=== PATIENT | male | born 1945 | race Caucasian/White ===

== ENCOUNTER 2017-11-18 13:38 | Inpatient (IN) | payer OTHER ==
[2017-11-18] VITALS (8 sets, daily range): BP systolic 108–143; BP diastolic 32–61
[~2017-11-18] VITALS: Ht 172.7 cm; Wt 70.8 kg
--- NOTE | ~2017-11-18 | CON ---
[place], [place] REPORT OF CONSULTATION NAME: FANNY DONG [facility] #: [id number] UNIT #: [id number] ROOM: 426 DOCTOR: ALEXANDRE MAYO MD BIRTHDATE: [birth year] DOS: 11/20/2017 CONSULTATION REQUESTED BY: Hospitalist service. REASON FOR CONSULTATION: Assessment of chest pain. HISTORY OF PRESENT ILLNESS: This is a 72-year-old white male, who is a patient unknown to me from the past. The patient has been admitted to the hospital under the hospitalist services on the date of 11/18/2017. The patient came into the Emergency Room, as he developed symptoms of acute left-sided chest pain, described to be stab by the patient, moderate to severe in intensity, radiating some to the arm and the shoulder. The pain has been also noted in the mid back as well. The pain was not resolving at home. The patient got concerned with possibility of heart attack, for which the patient came to the hospital for further assessment. He was also complaining of significant tightness in the chest, which lasted about 2-1/2 hours. The pain was not associated with any diaphoresis, cough, shortness of breath or hemoptysis. The patient denied symptoms of chest trauma. REVIEW OF SYSTEMS: CONSTITUTIONAL SYMPTOMS: Fatigue and tiredness was noted without any symptoms of fever or chills. EYES: Denies any burning, redness or tenderness. EARS, NOSE, THROAT: Denies sore throat, hoarseness, otalgia, postnasal drainage or epistaxis. CARDIOVASCULAR: Denies anginal pain at the present time. Denies any edema of the lower extremities, palpitations or pain of the lower extremities. GASTROINTESTINAL: Denies dysphagia, nausea, vomiting, diarrhea, abdominal pain, hematemesis, melena or hematochezia. GENITOURINARY: Denies dysuria, suprapubic pain or hematuria. SKIN: Denies abnormal lesions or rashes. CENTRAL NERVOUS SYSTEM: Denies dizziness, headache, diplopia or syncopal episodes at the present time. He was complaining of some dizziness on admission, which has been resolved. Remaining systems were reviewed, they were noted all negative. PAST MEDICAL HISTORY: 1. He has history reported for COPD, but the patient is a nonsmoker. 2. Agent [place] exposure. 3. History of depression. 4. History of congestive heart failure, systolic or diastolic dysfunction is unknown. 5. Peptic ulcer disease. 6. Gastroesophageal reflux disease. 7. Hyperlipidemia. 8. Obstructive sleep apnea disorder. 9. Coronary artery disease. PAST SURGICAL HISTORY: [place], [place] REPORT OF CONSULTATION NAME: FANNY DONG UNIT #: [id number] ROOM: 426 DOCTOR: ALEXANDRE MAYO MD BIRTHDATE: [birth year] 1. Cardiac catheterization and coronary stents insertion in the past. 2. Bilateral inguinal hernia repair. 3. Surgery of the right upper extremity. SOCIAL HISTORY: The patient denies any history of alcohol, tobacco or illicit drug use. He is and lives at home. The patient has 2 children. FAMILY HISTORY: The patient's father at age 90 of old age. Mother from complication of at a younger age. HOME MEDICATIONS: Noted use of aspirin, Lipitor, Plavix, guaifenesin 1 mg b.i.d., Asmanex, Protonix and Paxil. DRUG ALLERGIES: THE PATIENT REPORTED ALLERGY TO: 1. PROZAC. 2. RABEPRAZOLE. PHYSICAL EXAMINATION: GENERAL: This is a 72-year-old male, who has been currently sitting comfortably on his bed without any acute distress at the time of the assessment. Height of 5 feet 8 inches, weight of 154 pounds, BMI 23. VITAL SIGNS: Normal temperature in the last 2 days of admission, respiratory rate ranged between 60 to 80, heart rate bradycardia for the patient at the lowest of 42 and the highest of 66, blood pressure of 116/68 to 143/32, pulse oxygen saturation on room air 95% saturation. HEENT: Head was atraumatic. Eyes nonicterus. Moderate decreased posterior pharyngeal space. Head was atraumatic. CARDIOVASCULAR SYSTEM: S1, S2 is audible. LUNGS: The patient was noted without any wheeze or crackles. Breaths are noted normal on auscultation bilaterally. ABDOMEN: Soft with mild to moderate obesity. Bowel sounds present. CENTRAL NERVOUS SYSTEM: Cranial nerves 2-12 intact. MUSCULOSKELETAL: Without any acute deformities. SKIN: No abnormal lesions or rashes. LABORATORY DATA: CBC of the patient on 11/18/2017 noted as essentially grossly normal. PT/PTT on 11/18/2017 was normal. CMP of the patient 11/18/2017 was noted with BUN of 20, creatinine 1.51 on admission. LFT is normal. Troponin of the patient 3 sets on 11/18/2017 normal. CBC on 11/19/2017 normal. CMP: BUN 19, creatinine 1.3 on 11/19/2017. The arterial blood gas for the patient: pH of 7.42, pCO2 33.8, pO2 82 on room air yesterday as well. The CBC of the patient yesterday essentially remains the same since admission. CMP of the patient: BUN 17, creatinine 1.47 noted. Chest x-ray of the patient that was done on 11/19/2017 essentially noted without any acute abnormality. CT of the chest was also completed for the patient that was reviewed, does not show any acute pulmonary embolus in the major pulmonary arteries. Subcarinal lymph node of the patient noted, the shortest dimension 1.2, the largest dimension 1.8, and a small left hilar lymph node also noted 1 cm in the shortest dimension. The left lower lobe for the patient was noted with possible pulmonary nodule, reflection of the pleural fluid in the left lower lobe cannot be completely excluded with [place], [place] REPORT OF CONSULTATION NAME: FANNY DONG UNIT #: [id number] ROOM: 426 DOCTOR: ALEXANDRE MAYO MD BIRTHDATE: [birth year] the possibility of some scarring as well. There was no past study available for the patient to compare the current findings about their acute or chronicity. IMPRESSION: 1. The patient who has been currently admitted to the hospital, noted with atypical chest pain on the left side. The exact etiology could not be determined. He has already completed the myocardial perfusion study on 11/19/2017 and assessed by the Cardiology services of the patient and noted as a normal study. 2. Finding of the current lymph node enlargement, abnormality in the left lower lobe, significance unknown. There was no past history of tobacco use. PLAN OF MANAGEMENT: The patient is [facility], as he has been managed through that, requiring the assessment of current abnormality of lymph node and to get the appropriate care and assessment. He would not require any further immediate assessment during the hospitalization. The patient is discharged home. He would be continued to be monitored by the primary care attending. The bradyarrhythmia of the patient that was also noted during admission seemed to resolve, may be medication related use by the patient. Other supportive therapy, plan of management and care plan. ALEXANDRE FERNANDEZ MD CM:CONSTR:REPORT OF CONSULTATION 1409 11/21/17 0111 interface
--- NOTE | ~2017-11-18 | ST ---
[place], [place] EXERCISE STRESS TEST [id number] UNIT #: [id number] ROOM: 426 DOCTOR: LUIS CABRERA MD BIRTHDATE: [birth year] DOS: 11/19/2017 LEXISCAN STRESS EKG REPORT REFERRING PHYSICIAN: Dr. Evans. INDICATION: Central chest pain. The patient underwent standard protocol Lexiscan stress EKG. Baseline EKG showed sinus bradycardia with heart rate of 47, blood pressure 149/74. The patient's peak heart rate was 66 with blood pressure 136/76. The patient had no chest pain, no ischemic changes, no arrhythmias noted. SUMMARY OF FINDINGS: Unremarkable Lexiscan stress EKG. Please see separate report for perfusion scan imaging results. LUIS CABRERA MD CM:STRESS:EXERCISE STRESS TEST REPORT [id number] LUIS CABRERA MD
[~2017-11-18 13:38] MED LIST: ASPIR LOW81 MG PO; METOCLOPRAMIDE H5 M1 PO; PANTOPRAZOLE SO40 MG PO; PAROXETINE30 MG PO; PAROXETINE40 MG PO; STRATTERA80 MG PO
[2017-11-18 14:16] LABS: BASO % 0.6 % (0.0-1.0); EOS # 0.2 10*3/uL (0.0-0.4); EOS % 3.3 % (1.0-4.0); HEMATOCRIT 38.9 % (42.0-52.0); HEMOGLOBIN 12.7 g/dl (14.0-18.0); LYMPH # 1.4 10*3/uL (1.3-4.4); LYMPH % 26.3 % (27.0-41.0); MEAN CELL VOLUME 90.3 fl (80.0-94.0); MEAN CORPUSCULAR HGB 29.5 pg (27.0-31.0); MEAN CORPUSCULAR HGB CONC 32.6 g/dl (33.0-37.0); MEAN PLATELET VOLUME 9.4 fl (9.6-12.3); MONO # 0.6 10*3/uL (0.1-1.0); MONO % 10.6 % (3.0-9.0); NEUT # 3.1 10*3/uL (2.3-7.9); PLATELET COUNT AUTOMATED 226 10*3/uL (130-400); RED BLOOD COUNT 4.31 10*6/uL (4.50-5.90); RED CELL DISTRI WIDTH 13.5 % (0-14.5); WHITE BLOOD COUNT 5.2 10*3/uL (4.8-10.8)
[2017-11-18 14:27] LABS: ACT PARTIAL THROMBO TIME 26.3 SECONDS (20.8-31.5); INTERNATIONAL NORM RATIO 1.1 (2.0-3.5)
[2017-11-18 14:33] LABS: ALBUMIN 3.4 gm/dl (3.1-4.5); ALKALINE PHOSPHATASE 163 U/L (45-117); BUN 20 mg/dl (7-24); CHLORIDE 102 mmol/L (98-107); CREATININE 1.51 mg/dL (0.70-1.30); SGOT/AST 29 IU/L (3-35); SGPT/ALT 43 U/L (12-78); SODIUM 138 mmol/L (136-145); TOTAL PROTEIN 6.8 gm/dL (6.4-8.2)
[2017-11-18 14:35] LABS: TROPONIN I < 0.015 ng/ml (<0.045)
[2017-11-18] MEDS ORDERED: PAXIL10 MG PO (17:41)
[2017-11-18] MEDS ORDERED: PAROXETINE HCL40 MG PO (18:25)
[2017-11-18] MEDS ORDERED: LIPITOR20 MG PO (18:26)
[2017-11-18] MEDS ORDERED: BAYER ASPIRIN C81 MG PO (18:27)
[2017-11-18] MEDS ORDERED: PLAVIX75 M1 PO (18:27)
[2017-11-18] MEDS ORDERED: GUANFACINE HCL1 MG PO (18:27)
[2017-11-18] MEDS ORDERED: ASMANEX220 MCG INH (18:29)
[2017-11-19] VITALS: BP 108/60
[2017-11-19 06:58] LABS: BASO % 0.6 % (0.0-1.0); EOS # 0.2 10*3/uL (0.0-0.4); EOS % 4.1 % (1.0-4.0); HEMATOCRIT 38.3 % (42.0-52.0); HEMOGLOBIN 12.6 g/dl (14.0-18.0); LYMPH # 1.5 10*3/uL (1.3-4.4); LYMPH % 27.5 % (27.0-41.0); MEAN CELL VOLUME 90.3 fl (80.0-94.0); MEAN CORPUSCULAR HGB 29.7 pg (27.0-31.0); MEAN CORPUSCULAR HGB CONC 32.9 g/dl (33.0-37.0); MEAN PLATELET VOLUME 9.2 fl (9.6-12.3); MONO # 0.8 10*3/uL (0.1-1.0); MONO % 14.3 % (3.0-9.0); NEUT # 2.8 10*3/uL (2.3-7.9); NEUT % 53.3 % (47.0-73.0); PLATELET COUNT AUTOMATED 201 10*3/uL (130-400); RED BLOOD COUNT 4.24 10*6/uL (4.50-5.90); RED CELL DISTRI WIDTH 13.8 % (0-14.5); WHITE BLOOD COUNT 5.3 10*3/uL (4.8-10.8)
[2017-11-19 07:07] LABS: ALBUMIN 3.1 gm/dl (3.1-4.5); ALKALINE PHOSPHATASE 148 U/L (45-117); BUN 19 mg/dl (7-24); CHLORIDE 106 mmol/L (98-107); CHOLESTEROL 137 mg/dL (<200); CREATININE 1.32 mg/dL (0.70-1.30); FREE T4 0.82 ng/dl (0.76-1.46); HDL CHOLESTEROL 42 mg/dl (40-60); LDL CHOLESTEROL 76 mg/dL (9-159); PHOSPHOROUS 3.5 mg/dL (2.5-4.9); POTASSIUM 4.3 mmol/L (3.5-5.1); SGOT/AST 30 IU/L (3-35); SGPT/ALT 41 U/L (12-78); SODIUM 141 mmol/L (136-145); TOTAL PROTEIN 6.2 gm/dL (6.4-8.2); TRIGLYCERIDES 94 mg/dl (<150); VLDL CHOLESTEROL 19 mg/dL (6-40)
[2017-11-19 07:42] LABS: ACT PARTIAL THROMBO TIME 27.7 SECONDS (20.8-31.5); INTERNATIONAL NORM RATIO 1.1 (2.0-3.5)
[2017-11-19 08:00] VITALS: BP 132/60
[2017-11-19 08:17] LABS: VITAMIN D, 25-HYDROXY 23.7 ng/mL (30-100)
[2017-11-19 13:06] VITALS: BP 142/64
[2017-11-19 16:00] VITALS: BP 131/65
[2017-11-19 17:22] LABS: ABG BASE EXCESS -1.7 mmol/L (-2.0-2.0); ABG HCO3 21.7 mmol/l (22-26); ABG O2 SATURATION 96.4 % (95-97); ARTERIAL BLOOD GAS PCO2 33.8 mmHg (35-45); ARTERIAL BLOOD GAS PH 7.422 (7.35-7.45); ARTERIAL BLOOD GAS PO2 82.1 mmHg (80-90)
[2017-11-19 20:00] VITALS: BP 115/56
[2017-11-20] VITALS: BP 116/68
[2017-11-20 06:38] LABS: BASO % 0.7 % (0.0-1.0); EOS # 0.2 10*3/uL (0.0-0.4); EOS % 3.8 % (1.0-4.0); HEMATOCRIT 39.4 % (42.0-52.0); HEMOGLOBIN 12.8 g/dl (14.0-18.0); LYMPH # 1.4 10*3/uL (1.3-4.4); MEAN CORPUSCULAR HGB 29.2 pg (27.0-31.0); MEAN CORPUSCULAR HGB CONC 32.5 g/dl (33.0-37.0); MEAN PLATELET VOLUME 9.8 fl (9.6-12.3); MONO # 0.7 10*3/uL (0.1-1.0); MONO % 12.8 % (3.0-9.0); NEUT # 3.4 10*3/uL (2.3-7.9); NEUT % 58.5 % (47.0-73.0); PLATELET COUNT AUTOMATED 217 10*3/uL (130-400); RED BLOOD COUNT 4.38 10*6/uL (4.50-5.90); RED CELL DISTRI WIDTH 13.9 % (0-14.5); WHITE BLOOD COUNT 5.7 10*3/uL (4.8-10.8)
[2017-11-20 06:57] LABS: ALBUMIN 3.2 gm/dl (3.1-4.5); CREATININE 1.47 mg/dL (0.70-1.30); PHOSPHOROUS 2.5 mg/dL (2.5-4.9); TOTAL PROTEIN 6.5 gm/dL (6.4-8.2)
[2017-11-20 08:00] VITALS: BP 118/84
[2017-11-20 12:00] VITALS: BP 133/79
== END 2017-11-20 15:54 | disposition home or self-care (01) | DRG 205 ==
LOC: ED 13:38 → 4E 17:17 → EDHOLD 17:17 → 4E 17:27
PROVIDERS: Family Medicine; Internal Medicine; Nurse Practitioner Family
PROC: 3E073KZ Introduction of Other Diagnostic Substance into Coronary Artery, Percutaneous Approach (ICD-10-PCS; principal; 2017-11-19)
PROC: 4A02XM4 Measurement of Cardiac Total Activity, External Approach (ICD-10-PCS; principal; 2017-11-19)
DX: M94.0 Chondrocostal junction syndrome [Tietze] (principal); N17.0 Acute kidney failure with tubular necrosis; I50.32 Chronic diastolic (congestive) heart failure; E44.0 Moderate protein-calorie malnutrition; J98.11 Atelectasis; I25.10 Atherosclerotic heart disease of native coronary artery without angina pectoris; J44.9 Chronic obstructive pulmonary disease, unspecified; K21.9 Gastro-esophageal reflux disease without esophagitis; K25.9 Gastric ulcer, unspecified as acute or chronic, without hemorrhage or perforation; F32.9 Major depressive disorder, single episode, unspecified; D72.810 Lymphocytopenia; D72.821 Monocytosis (symptomatic); E78.5 Hyperlipidemia, unspecified; G47.33 Obstructive sleep apnea (adult) (pediatric); F41.9 Anxiety disorder, unspecified; D64.9 Anemia, unspecified; E55.9 Vitamin D deficiency, unspecified; R73.03 Prediabetes; Z77.098 Contact with and (suspected) exposure to other hazardous, chiefly nonmedicinal, chemicals; I34.0 Nonrheumatic mitral (valve) insufficiency; Z88.8 Allergy status to other drugs, medicaments and biological substances; Z79.899 Other long term (current) drug therapy; Z95.5 Presence of coronary angioplasty implant and graft; Z87.11 Personal history of peptic ulcer disease; Z68.23 Body mass index [BMI] 23.0-23.9, adult

== ENCOUNTER 2018-03-31 13:38 | Inpatient (IN) | payer OTHER, MEDICARE ==
[~2018-03-31] VITALS: Ht 172.7 cm; Wt 69.0 kg
[~2018-03-31 13:38] MED LIST changes: +ASMANEX220 MCG INH; +BAYER ASPIRIN C81 MG PO; +GUANFACINE HCL1 MG PO; +LIPITOR20 MG PO; +PAROXETINE HCL40 MG PO; +PAXIL10 MG PO; +PLAVIX75 M1 PO
[2018-03-31 13:43] VITALS: BP 132/70
[2018-03-31 14:02] LABS: BASO % 0.2 % (0.0-1.0); EOS # 0.1 10*3/uL (0.0-0.4); EOS % 1.2 % (1.0-4.0); HEMATOCRIT 39.9 % (42.0-52.0); LYMPH # 1.3 10*3/uL (1.3-4.4); LYMPH % 15.5 % (27.0-41.0); MEAN CELL VOLUME 92.1 fl (80.0-94.0); MEAN CORPUSCULAR HGB CONC 32.6 g/dl (33.0-37.0); MEAN PLATELET VOLUME 9.2 fl (9.6-12.3); MONO # 0.9 10*3/uL (0.1-1.0); MONO % 11.5 % (3.0-9.0); NEUT # 5.7 10*3/uL (2.3-7.9); NEUT % 71.2 % (47.0-73.0); PLATELET COUNT AUTOMATED 230 10*3/uL (130-400); RED BLOOD COUNT 4.33 10*6/uL (4.50-5.90); RED CELL DISTRI WIDTH 14.3 % (0-14.5); WHITE BLOOD COUNT 8.1 10*3/uL (4.8-10.8)
[2018-03-31 14:11] LABS: INTERNATIONAL NORM RATIO 1.1 (2.0-3.5)
[2018-03-31 14:22] LABS: ALBUMIN 3.5 gm/dl (3.1-4.5); ALKALINE PHOSPHATASE 187 U/L (45-117); BUN 16 mg/dl (7-24); CHLORIDE 103 mmol/L (98-107); CREATININE 1.53 mg/dL (0.70-1.30); POTASSIUM 3.6 mmol/L (3.5-5.1); SGOT/AST 16 IU/L (3-35); SGPT/ALT 20 U/L (12-78); SODIUM 139 mmol/L (136-145)
[2018-03-31 14:24] LABS: TROPONIN I < 0.015 ng/ml (<0.045)
[2018-03-31 14:33] VITALS: BP 103/59
[2018-03-31 15:12] VITALS: BP 97/68
[2018-03-31 15:40] VITALS: BP 97/68
[2018-03-31] MEDS ORDERED: OMEPRAZOLE D/R20 MG PO (19:35)
[2018-03-31] MEDS ORDERED: LASIX20 MG PO (19:36)
[2018-03-31 20:00] VITALS: BP 108/52
[2018-04-01] VITALS: BP 102/52
[2018-04-01 06:50] LABS: BASO % 0.4 % (0.0-1.0); EOS # 0.1 10*3/uL (0.0-0.4); EOS % 1.4 % (1.0-4.0); HEMATOCRIT 40.3 % (42.0-52.0); LYMPH # 1.3 10*3/uL (1.3-4.4); LYMPH % 16.6 % (27.0-41.0); MEAN CELL VOLUME 92.9 fl (80.0-94.0); MEAN CORPUSCULAR HGB CONC 32.3 g/dl (33.0-37.0); MEAN PLATELET VOLUME 9.3 fl (9.6-12.3); MONO # 1.1 10*3/uL (0.1-1.0); NEUT # 5.5 10*3/uL (2.3-7.9); NEUT % 68.2 % (47.0-73.0); PLATELET COUNT AUTOMATED 228 10*3/uL (130-400); RED BLOOD COUNT 4.34 10*6/uL (4.50-5.90); RED CELL DISTRI WIDTH 14.3 % (0-14.5); WHITE BLOOD COUNT 8.1 10*3/uL (4.8-10.8)
[2018-04-01 07:27] LABS: BUN 18 mg/dl (7-24); CHLORIDE 105 mmol/L (98-107); PHOSPHOROUS 3.4 mg/dL (2.5-4.9); POTASSIUM 3.9 mmol/L (3.5-5.1); SODIUM 141 mmol/L (136-145)
[2018-04-01 07:37] LABS: FREE T4 0.77 ng/dl (0.76-1.46)
[2018-04-01 08:00] VITALS: BP 102/54
[2018-04-01 12:00] VITALS: BP 118/68
[2018-04-01 15:02] LABS: BILIRUBIN NEGATIVE (NEGATIVE); BLOOD TRACE-LYSED (NEGATIVE); CLARITY CLEAR (CLEAR); COLOR YELLOW (YELLOW); GLUCOSE NEGATIVE (NEGATIVE); KETONE NEGATIVE (NEGATIVE); LEUKO ESTERASE NEGATIVE (NEGATIVE); NITRITE NEGATIVE (NEGATIVE); PH 5.5 (5.0-9.0); UROBILINOGEN 0.2 E.U./dl (0.2-1.0)
[2018-04-01 15:18] LABS: BACTERIA TRACE; RBC 0-2 rbc/hpf (0-2)
[2018-04-01 16:00] VITALS: BP 126/64
[2018-04-01 20:00] VITALS: BP 109/80
[2018-04-02] VITALS: BP 111/68
[2018-04-02 07:21] LABS: BASO % 0.6 % (0.0-1.0); EOS # 0.3 10*3/uL (0.0-0.4); EOS % 5.1 % (1.0-4.0); HEMATOCRIT 42.2 % (42.0-52.0); HEMOGLOBIN 13.5 g/dl (14.0-18.0); LYMPH # 1.3 10*3/uL (1.3-4.4); LYMPH % 24.3 % (27.0-41.0); MEAN CELL VOLUME 93.2 fl (80.0-94.0); MEAN CORPUSCULAR HGB 29.8 pg (27.0-31.0); MEAN PLATELET VOLUME 9.3 fl (9.6-12.3); MONO # 0.9 10*3/uL (0.1-1.0); MONO % 16.7 % (3.0-9.0); NEUT # 2.8 10*3/uL (2.3-7.9); NEUT % 53.1 % (47.0-73.0); PLATELET COUNT AUTOMATED 238 10*3/uL (130-400); RED BLOOD COUNT 4.53 10*6/uL (4.50-5.90); RED CELL DISTRI WIDTH 14.5 % (0-14.5); WHITE BLOOD COUNT 5.3 10*3/uL (4.8-10.8)
[2018-04-02 08:00] VITALS: BP 142/73
[2018-04-02 08:07] LABS: BUN 13 mg/dl (7-24); CHLORIDE 108 mmol/L (98-107); CREATININE 1.32 mg/dL (0.70-1.30); PHOSPHOROUS 2.2 mg/dL (2.5-4.9); SODIUM 143 mmol/L (136-145)
[2018-04-02 08:08] LABS: POTASSIUM 4.9 mmol/L (3.5-5.1)
[2018-04-02 12:00] VITALS: BP 131/82
== END 2018-04-02 14:34 | disposition home or self-care (01) | DRG 206 ==
LOC: ED 13:38 → EDHOLD 14:29 → 5E 14:29
PROVIDERS: Emergency Medicine; Internal Medicine; Student in an Organized Health Care Education/Training Program
DX: M94.0 Chondrocostal junction syndrome [Tietze] (principal); I50.30 Unspecified diastolic (congestive) heart failure; I13.0 Hypertensive heart and chronic kidney disease with heart failure and stage 1 through stage 4 chronic kidney disease, or unspecified chronic kidney disease; J44.9 Chronic obstructive pulmonary disease, unspecified; N18.3 Chronic kidney disease, stage 3 (moderate); R00.1 Bradycardia, unspecified; D72.810 Lymphocytopenia; R74.8 Abnormal levels of other serum enzymes; K21.9 Gastro-esophageal reflux disease without esophagitis; F32.9 Major depressive disorder, single episode, unspecified; G47.33 Obstructive sleep apnea (adult) (pediatric); E78.5 Hyperlipidemia, unspecified; Z77.098 Contact with and (suspected) exposure to other hazardous, chiefly nonmedicinal, chemicals; E55.9 Vitamin D deficiency, unspecified; Z88.8 Allergy status to other drugs, medicaments and biological substances; Z79.899 Other long term (current) drug therapy; Z79.82 Long term (current) use of aspirin; Z98.61 Coronary angioplasty status; F41.9 Anxiety disorder, unspecified

== ENCOUNTER 2018-04-03 09:20 | Inpatient (IN) | payer OTHER, MEDICARE ==
[~2018-04-03] VITALS: Ht 172.7 cm; Wt 70.3 kg
--- NOTE | ~2018-04-03 | CON ---
[place], [place] REPORT OF CONSULTATION NAME: FANNY DONG [facility] #: [id number] UNIT #: [id number] ROOM: 411 DOCTOR: ABIGAIL VERASILYAOLEG BIRTHDATE: [birth year] DOS: 04/03/2018 CARDIOLOGY CONSULT REASON FOR CONSULTATION: Chest pain and shortness of breath. HISTORY OF PRESENT ILLNSS: The patient is a 72-year-old gentleman with history of hypertension, coronary artery disease, COPD, sleep apnea, chronic kidney disease, presented to the Emergency Room for shortness of breath and chest pain. The patient is somewhat vague in his description of his symptoms, but he noted to have intermittent shortness of breath. His last episode of shortness of breath came at rest suddenly, but no hemoptysis, no cough. No PND, no orthopnea, no edema. He also had intermittent sharp mid sternal chest pain lasted for a few seconds. No associated nausea, diaphoresis. The pain is intermittent and relieved without any intervention. Distal coronary artery has a stent to the LAD in 05/2017, per records. No palpitations, no fever, no chills, no cough. No bladder or bowel symptoms. No neurologic symptoms. No genitourinary symptoms. No musculoskeletal symptoms. REVIEW OF SYSTEMS: Review of the 10 systems negative except as described above. PAST MEDICAL HISTORY: 1. Coronary artery disease, status post LAD stent in 05/2017. 2. Hypertension. 3. Chronic kidney disease. 4. Chronic obstructive pulmonary disease. 5. Sleep apnea. 6. Sinus bradycardia. PAST SURGICAL HISTORY: 1. History of LAD stent in 05/2017. 2. History of surgery to the arm. SOCIAL HISTORY: The patient does not smoke or drink. No illicit drugs. FAMILY HISTORY: Father in his 90s from old age. Mother at younger age from complications. HOME MEDICATIONS: Reviewed. ALLERGIES: Reviewed. PHYSICAL EXAMINATION: VITAL SIGNS: Blood pressure 148/76, pulse 61, respiratory rate 14, weight 70.3 kilos, BMI 23.6. GENERAL: Alert, comfortable, in no acute distress. HEENT: Pupils are round and equal. No jaundice. Tongue was moist and pharynx was clear. NECK: Supple, no distended neck veins, no carotid bruit. CHEST: Symmetrical, nontender. [place], [place] REPORT OF CONSULTATION NAME: FANNY DONG UNIT #: [id number] ROOM: 411 DOCTOR: ABIGAIL VERAS,SENTHIL BIRTHDATE: [birth year] LUNGS: A few scattered rhonchi, but good air entry bilaterally. HEART: Regular rhythm, no S3, no palpable thrills. ABDOMEN: Benign, nontender. Bowel sounds normal. EXTREMITIES: Showed no edema. Distal pulses palpable. SKIN: Warm and dry. No cyanosis, no clubbing. RECTAL: Deferred. GENITOURINARY: Deferred. NEUROLOGIC: The patient is alert, oriented. No focal neurologic deficit. REVIEW OF THE DIAGNOSTIC TESTS: EKG sinus rhythm with no acute ST-T changes. CBC, chemistry cardiac enzymes reviewed, unremarkable except for creatinine of 1.44. Echo from 10/2017 unremarkable, stress test from 10/2017 showed no gross ischemia. IMPRESSION: 1. Chest pain, atypical, myocardial infarction ruled out. 2. Coronary artery disease, status post LAD stent in 05/2017. 3. History of sinus bradycardia, currently stable. 4. Hypertension. 5. Chronic obstructive pulmonary disease. 6. Sleep apnea. 7. Chronic kidney disease. 8. History agent orange exposure. RECOMMENDATIONS: 1. The patient is stable from a cardiac standpoint. 2. Continue current medications, aspirin, Plavix, and statin. 3. No beta sindy due to sinus bradycardia. 4. Follow up with his canary breeder at the [facility] for his Holter monitor report, which was applied recently. Currently, there is no bradycardia and the patient is asymptomatic. 5. He can be discharged from the cardiac standpoint and follow up with his canary breeder at [facility] in [place]. SENTHIL HAYES MD CM:CONSTR:REPORT OF CONSULTATION 1458 04/04/18 0323 interface
--- NOTE | ~2018-04-03 | CON ---
[place], [place] REPORT OF CONSULTATION NAME: FANNY DONG [facility] #: [id number] UNIT #: [id number] ROOM: 411 DOCTOR: ALEXANDRE MAYO MD BIRTHDATE: [birth year] DOS: 04/04/2018 PULMONARY CONSULTATION EVALUATION AND MANAGEMENT CONSULTATION REQUESTED BY: Hospitalist Services. REASON FOR CONSULTATION: Assessment of symptoms of shortness of breath and atypical chest pain. HISTORY OF PRESENT ILLNESS: This is a 72-year-old white male who has been known to me with past history of bronchial asthma. The patient was seen in the hospital later on in the office as well. Taking his respiratory medications. He presented to the [facility] with complaints of shortness of breath that occurred last night. He was also complaining of symptoms of atypical chest pain. The patient denies any symptoms of chest pain at this time. Shortness of breath improved. He denies symptoms of sputum expectoration or coughing. The patient was hospitalized recently for the bronchitis and no other symptom and discharged home under the care of the Hospitalist Service on 04/02/2018. REVIEW OF SYSTEMS: CONSTITUTIONAL: Fatigue and tiredness noted without any symptoms of fever or chills. EYES: Denies any burning, redness, or tenderness. EARS, NOSE, THROAT SYMPTOMS: Denies sore throat, hoarseness, otalgia, postnasal drainage. CARDIOVASCULAR: Denies angina pain, edema or pain of the lower extremities. GASTROINTESTINAL: Denies any symptoms of dysphagia, nausea, vomiting, diarrhea, abdominal pain, hematemesis, melena, or hematochezia. GENITOURINARY: No dysuria, suprapubic pain, hematuria. MUSCULOSKELETAL: The examination noted without any acute deformity lesions or rashes. CENTRAL NERVOUS SYSTEM: No dizziness, headache, diplopia, syncopal episodes or seizures. Remaining systems were reviewed, they were noted all negative. PAST MEDICAL HISTORY: 1. History reported for COPD and bronchial asthma. The patient is a nonsmoker. 2. History of Agent [place] exposure. 3. History of depression. 4. Past history of congestive heart failure with diastolic dysfunction and mild mitral valve regurgitation. 5. Peptic ulcer disease. 6. Gastroesophageal reflux. 7. Hyperlipidemia. 8. Obstructive sleep apnea disorder. 9. Coronary artery disease. PAST SURGICAL HISTORY: 1. Cardiac catheterization with coronary stents insertion. [place], [place] REPORT OF CONSULTATION [facility]: [id number] UNIT #: [id number] ROOM: 411 DOCTOR: REBECCA PANIAGUA MDALEXANDRE BIRTHDATE: [birth year] 2. Bilateral inguinal hernia repair. 3. Surgery of the right upper extremity. SOCIAL HISTORY: The patient denies history of alcohol use, illicit drug use or tobacco use. He is and has 2 children, has been exposed to Agent [place] during the [place] war. FAMILY HISTORY: Father in 90 years of old age. Mother from younger age, complication related to . MEDICATIONS: The current medication administered noted use of Lipitor, omeprazole, Lasix, Tenex, Plavix, aspirin, paroxetine, Lovenox for DVT prophylaxis, oral Lasix previously administered 20 mg. DRUG ALLERGIES: The patient noted as allergies to: 1. FLUOXETINE. 2. RABEPRAZOLE. PHYSICAL EXAMINATION: GENERAL: A 72 years white male currently resting comfortably on the bed without any distress. The is present in the room with the patient. Height of 5 feet 8 inches, weight 155 pounds, BMI 23.5. VITAL SIGNS: Normal temperature, respirations 18-20, heart rate 70-75, blood pressure 146/82-139/70. Pulse ox saturation on room air was 93% saturation. HEENT: Head was atraumatic. Eyes nonicterus. NECK: Supple. CARDIOVASCULAR: S1, S2 audible. LUNGS: The patient was noted without any crackles, rhonchi, or wheezing at this time. Lungs were noted completely clear. ABDOMEN: Soft, flat, nontender, bowel sounds present. EXTREMITIES: No acute edema. SKIN: No lesions or rashes. CENTRAL NERVOUS SYSTEM: The patient was noted without any gross focal deficit. Cranial nerves 2-12 intact. LABORATORY DATA: CBC done on 04/03/2018 was essentially noted as normal CBC for this patient. The lactic acid noted at 2.0. The CMP of the patient done on 04/03/2018, BUN 30, creatinine 1.44. Blood culture of the patient reported no bacterial growths. CBC of the patient this morning essentially remains grossly normal except eosinophils of 4.7%. The BMP of the patient noted with normal BUN and creatinine. PT/INR was noted with normal PT and PTT. The chest x-ray one-view that was done noted without any acute abnormalities. IMPRESSION: 1. The patient has been currently admitted to the hospital with symptoms of shortness of breath and nonspecific chest pain at this time in the midsternal area seemed to be resolved. 2. Eosinophilia with the patient's history of bronchial asthma. At this time, the etiology was unclear, possibility of bronchospasm with eosinophilia and exacerbation of bronchial asthma cannot be completely excluded. [place], [place] REPORT OF CONSULTATION NAME: FANNY DONG UNIT #: [id number] ROOM: 411 DOCTOR: REBECCA PANIAGUA MD,ALEXANDRE BIRTHDATE: [birth year] 3. Rule out right-sided heart problem of the patient as previous echocardiogram does not have any mention of the pulmonary artery pressure assessment. 4. History of Agent [place] exposure and psychiatric problem as well. PLAN OF MANAGEMENT: The patient will be recommended about assessment of the right-sided heart pressure with possible consideration of repeat echocardiogram or to consider right heart cardiac catheterization to exclude any problem. At this time, the patient will be continued on current use of medical management and p.r.n. use of bronchodilators as well. The patient to be discharged home if necessary. If the symptom remains persistent for this patient, certainly he may require CT of the chest to reassess the pulmonary arteries and/or V/Q scan as well. Thanks for allowing me to participate in care of this patient. ALEXANDRE FERNANDEZ MD CM:CONSTR:REPORT OF CONSULTATION 1625 04/05/18 0335 interface
--- NOTE | ~2018-04-03 | PR ---
[place], [place] PROGRESS NOTE NAME: FANNY DONG UNIT #: [id number] ROOM: 411 DOCTOR: REBECCA PANIAGUA MD,ALEXANDRE BIRTHDATE: [birth year] DOS: 04/05/2018 SUBJECTIVE: The patient noted comfortable, remains free of any acute respiratory distress and other abnormal respiratory symptoms. Denies symptoms of chest pain or hemoptysis. Denies any symptoms of chest tightness. OBJECTIVE: VITAL SIGNS: Normal temperature, respiratory rate 18, heart 63, blood pressure 124/84. HEENT: Showed no acute change. NECK: Supple. CARDIOVASCULAR: S1, S2 is audible. LUNGS: The patient was noted without any wheezing or crackles at the present time. ABDOMEN: Soft, nontender. EXTREMITIES: Without any acute edema. IMPRESSION: 1. The patient with current abnormal respiratory symptoms, shortness breath. Etiology remains unclear. Mild eosinophilia was also noted. The patient's etiology is clearly understood. 2. Rule out right-sided heart problem, cardiac dysrhythmias, and others. PLAN OF MANAGEMENT: The patient was planned for discharge home today, to be [facility] with [facility] to be referred to Cardiology for further assessment. In the meantime, no other change in treatment. The patient will be recommended from the pulmonary standpoint. Continue previous therapy, bronchial asthma as ordered and as previously used by the patient. ALEXANDRE FERNANDEZ MD CM:PNTRANS [id number] ALEXANDRE PANIAGUA MD 04/06/18 0103 interface
--- NOTE | ~2018-04-03 | EKG ---
[place], [place] ELECTROCARDIOGRAM REPORT NAME: FANNY DONG UNIT #: [id number] ROOM: 411 DOCTOR: DANIEL ELIAS MD BIRTHDATE: [birth year] DOS: 04/03/2018 TIME: 0950 hours. FINDINGS: 1. Normal sinus rhythm at 64 beats per minute. 2. The tracing is normal. 3. No previous tracing is available for comparison. DANIEL ELIAS MD CM:EKGRPT:ELECTROCARDIOGRAM REPORT [id number] DANIEL ELIAS MD
[~2018-04-03 09:20] MED LIST changes: +LASIX20 MG PO; +OMEPRAZOLE D/R20 MG PO
[2018-04-03 09:22] VITALS: BP 154/86
[2018-04-03 10:03] LABS: BASO % 0.5 % (0.0-1.0); EOS # 0.2 10*3/uL (0.0-0.4); EOS % 2.9 % (1.0-4.0); HEMATOCRIT 43.5 % (42.0-52.0); HEMOGLOBIN 14.6 g/dl (14.0-18.0); LYMPH # 1.6 10*3/uL (1.3-4.4); LYMPH % 25.4 % (27.0-41.0); MEAN CELL VOLUME 89.1 fl (80.0-94.0); MEAN CORPUSCULAR HGB 29.9 pg (27.0-31.0); MEAN CORPUSCULAR HGB CONC 33.6 g/dl (33.0-37.0); MEAN PLATELET VOLUME 9.2 fl (9.6-12.3); MONO # 0.7 10*3/uL (0.1-1.0); MONO % 11.3 % (3.0-9.0); NEUT # 3.7 10*3/uL (2.3-7.9); NEUT % 59.7 % (47.0-73.0); PLATELET COUNT AUTOMATED 283 10*3/uL (130-400); RED BLOOD COUNT 4.88 10*6/uL (4.50-5.90); RED CELL DISTRI WIDTH 14.3 % (0-14.5); WHITE BLOOD COUNT 6.2 10*3/uL (4.8-10.8)
[2018-04-03 10:14] VITALS: BP 140/80
[2018-04-03 10:18] LABS: ALBUMIN 3.9 gm/dl (3.1-4.5); ALKALINE PHOSPHATASE 202 U/L (45-117); BUN 13 mg/dl (7-24); CHLORIDE 105 mmol/L (98-107); CREATININE 1.44 mg/dL (0.70-1.30); SGOT/AST 19 IU/L (3-35); SGPT/ALT 23 U/L (12-78); SODIUM 141 mmol/L (136-145); TOTAL PROTEIN 8.1 gm/dL (6.4-8.2)
[2018-04-03 10:20] LABS: POTASSIUM 3.6 mmol/L (3.5-5.1); TROPONIN I < 0.015 ng/ml (<0.045)
[2018-04-03 10:41] VITALS: BP 120/62
[2018-04-03 11:40] VITALS: BP 168/76
[2018-04-03 16:00] VITALS: BP 118/72
[2018-04-03 20:00] VITALS: BP 106/73
[2018-04-04] VITALS: BP 123/66
[2018-04-04 07:13] LABS: BASO % 0.6 % (0.0-1.0); EOS # 0.3 10*3/uL (0.0-0.4); EOS % 4.7 % (1.0-4.0); HEMOGLOBIN 13.2 g/dl (14.0-18.0); LYMPH # 1.3 10*3/uL (1.3-4.4); LYMPH % 21.2 % (27.0-41.0); MEAN CORPUSCULAR HGB CONC 32.2 g/dl (33.0-37.0); MEAN PLATELET VOLUME 9.5 fl (9.6-12.3); MONO # 0.7 10*3/uL (0.1-1.0); MONO % 11.5 % (3.0-9.0); NEUT # 3.8 10*3/uL (2.3-7.9); NEUT % 61.8 % (47.0-73.0); PLATELET COUNT AUTOMATED 267 10*3/uL (130-400); RED CELL DISTRI WIDTH 14.7 % (0-14.5); WHITE BLOOD COUNT 6.2 10*3/uL (4.8-10.8)
[2018-04-04 07:18] LABS: MEAN CELL VOLUME 93.2 fl (80.0-94.0)
[2018-04-04 07:24] LABS: BUN 16 mg/dl (7-24); CHLORIDE 107 mmol/L (98-107); PHOSPHOROUS 3.4 mg/dL (2.5-4.9); POTASSIUM 4.3 mmol/L (3.5-5.1); SODIUM 143 mmol/L (136-145)
[2018-04-04 08:00] VITALS: BP 103/74; BP 110/78
[2018-04-04 12:00] VITALS: BP 146/82
[2018-04-04 16:00] VITALS: BP 139/70
[2018-04-04 20:00] VITALS: BP 137/67
[2018-04-05] VITALS: BP 143/70
[2018-04-05 06:39] LABS: BASO % 0.4 % (0.0-1.0); EOS # 0.3 10*3/uL (0.0-0.4); EOS % 4.6 % (1.0-4.0); HEMATOCRIT 42.5 % (42.0-52.0); HEMOGLOBIN 13.5 g/dl (14.0-18.0); LYMPH # 1.6 10*3/uL (1.3-4.4); LYMPH % 23.7 % (27.0-41.0); MEAN CELL VOLUME 93.6 fl (80.0-94.0); MEAN CORPUSCULAR HGB 29.7 pg (27.0-31.0); MEAN CORPUSCULAR HGB CONC 31.8 g/dl (33.0-37.0); MEAN PLATELET VOLUME 9.4 fl (9.6-12.3); MONO # 0.9 10*3/uL (0.1-1.0); MONO % 13.2 % (3.0-9.0); NEUT # 3.9 10*3/uL (2.3-7.9); NEUT % 57.8 % (47.0-73.0); PLATELET COUNT AUTOMATED 279 10*3/uL (130-400); RED BLOOD COUNT 4.54 10*6/uL (4.50-5.90); RED CELL DISTRI WIDTH 14.6 % (0-14.5); WHITE BLOOD COUNT 6.7 10*3/uL (4.8-10.8)
[2018-04-05 06:54] LABS: BUN 23 mg/dl (7-24); CHLORIDE 105 mmol/L (98-107); CREATININE 1.31 mg/dL (0.70-1.30); POTASSIUM 3.8 mmol/L (3.5-5.1); SODIUM 141 mmol/L (136-145)
[2018-04-05 08:00] VITALS: BP 150/80
[2018-04-05 12:00] VITALS: BP 124/84
== END 2018-04-05 12:58 | disposition home or self-care (01) | DRG 880 ==
LOC: ED 09:20 → EDHOLD 10:38 → 4E 10:53
PROVIDERS: Family Medicine; Internal Medicine; Nurse Practitioner Family
DX: F41.9 Anxiety disorder, unspecified (principal); E11.65 Type 2 diabetes mellitus with hyperglycemia; D72.1 Eosinophilia; I50.30 Unspecified diastolic (congestive) heart failure; I13.0 Hypertensive heart and chronic kidney disease with heart failure and stage 1 through stage 4 chronic kidney disease, or unspecified chronic kidney disease; E83.39 Other disorders of phosphorus metabolism; N18.3 Chronic kidney disease, stage 3 (moderate); E83.41 Hypermagnesemia; D64.9 Anemia, unspecified; I34.0 Nonrheumatic mitral (valve) insufficiency; Z77.098 Contact with and (suspected) exposure to other hazardous, chiefly nonmedicinal, chemicals; E78.5 Hyperlipidemia, unspecified; G47.33 Obstructive sleep apnea (adult) (pediatric); K21.9 Gastro-esophageal reflux disease without esophagitis; F32.9 Major depressive disorder, single episode, unspecified; I49.9 Cardiac arrhythmia, unspecified; I25.10 Atherosclerotic heart disease of native coronary artery without angina pectoris; J44.9 Chronic obstructive pulmonary disease, unspecified; Z87.898 Personal history of other specified conditions; Z78.9 Other specified health status; Z01.89 Encounter for other specified special examinations; Z98.61 Coronary angioplasty status; Z88.8 Allergy status to other drugs, medicaments and biological substances; Z79.899 Other long term (current) drug therapy; Z79.82 Long term (current) use of aspirin; Z87.19 Personal history of other diseases of the digestive system; Z98.890 Other specified postprocedural states

== ENCOUNTER → 2019-07-22 | Outpatient (CLI) | payer OTHER | END | disposition home or self-care (01) | LOC: MRI 13:53 | DX: F03.91 Unspecified dementia, unspecified severity, with behavioral disturbance (principal) ==

== ENCOUNTER → 2022-03-19 | Outpatient (CLI) | payer OTHER | END | disposition home or self-care (01) | LOC: CARD 08:29 | PROVIDERS: ATTEND Nurse Practitioner Family | DX: I35.8 Other nonrheumatic aortic valve disorders (principal) ==

== ENCOUNTER 2024-02-16 15:33 | Emergency (ER) | payer OTHER ==
[~2024-02-16] VITALS: Wt 73.5 kg
[2024-02-16 15:53] LABS: BASO # 0.1 10*3/uL (0.0-0.1); BASO % 0.7 % (0.0-1.0); EOS # 0.2 10*3/uL (0.0-0.4); EOS % 2.6 % (1.0-4.0); HEMATOCRIT 44.1 % (42.0-52.0); LYMPH # 1.8 10*3/uL (1.3-4.4); LYMPH % 24.7 % (27.0-41.0); MEAN CORPUSCULAR HGB 31.5 pg (27.0-31.0); MEAN CORPUSCULAR HGB CONC 33.1 g/dl (33.0-37.0); MEAN PLATELET VOLUME 8.8 fl (9.6-12.3); MONO # 0.7 10*3/uL (0.1-1.0); MONO % 9.1 % (3.0-9.0); NEUT # 4.6 10*3/uL (2.3-7.9); NEUT % 62.8 % (47.0-73.0); PLATELET COUNT AUTOMATED 235 10*3/uL (130-400); RED BLOOD COUNT 4.64 10*6/uL (4.50-5.90); RED CELL DISTRI WIDTH 13.6 % (0-14.5); WHITE BLOOD COUNT 7.3 10*3/uL (4.8-10.8)
[2024-02-16 16:04] LABS: ACT PARTIAL THROMBO TIME 27.8 SECONDS (20.0-32.1)
[2024-02-16 16:22] LABS: TOTAL PROTEIN 6.8 gm/dL (6.0-8.0)
[2024-02-16 18:00] VITALS: BP 138/70
== END 2024-02-16 17:44 | disposition home or self-care (01) ==
LOC: ED 15:33
PROVIDERS: Nurse Practitioner
DX: R07.89 Other chest pain (principal); F32.A Depression, unspecified; I50.9 Heart failure, unspecified; I25.10 Atherosclerotic heart disease of native coronary artery without angina pectoris; F41.9 Anxiety disorder, unspecified; M19.90 Unspecified osteoarthritis, unspecified site; K21.9 Gastro-esophageal reflux disease without esophagitis; E78.00 Pure hypercholesterolemia, unspecified; F90.9 Attention-deficit hyperactivity disorder, unspecified type; N18.2 Chronic kidney disease, stage 2 (mild); Z88.8 Allergy status to other drugs, medicaments and biological substances; Z98.890 Other specified postprocedural states; F15.20 Other stimulant dependence, uncomplicated